=== PATIENT | female | born 1975 | race Two or more races ===

== ENCOUNTER 2018-10-04 21:13 | Emergency (ER) | payer BC ==
[~2018-10-04] VITALS: Ht 175.3 cm; Wt 61.2 kg
[2018-10-04 21:22] VITALS: BP_SYST 121
[2018-10-04 21:54] LABS: BASOPHILS # (AUTO) 0.1 K/uL (0.0-0.2); BASOPHILS % (AUTO) 0.7 % (0.0-2.0); EOSINOPHILS # (AUTO) 0.2 K/uL (0.0-0.4); EOSINOPHILS % (AUTO) 2.5 % (0.0-4.0); HEMATOCRIT 39.5 % (36-48); HEMOGLOBIN 13.1 g/dL (12.0-16.0); LYMPHOCYTES # (AUTO) 2.8 K/uL (1.0-5.5); LYMPHOCYTES % (AUTO) 35.2 % (20.5-51.5); MEAN CORPUSCULAR HEMOGLOBIN 31 pg (27-31); MEAN CORPUSCULAR HGB CONC 33 % (32-36); MEAN CORPUSCULAR VOLUME 92 fL (79.0-98.0); MONOCYTES # (AUTO) 0.8 K/uL (0.0-1.0); MONOCYTES % (AUTO) 10.5 % (1.7-9.3); NEUTROPHILS % (AUTO) 51.1 % (40.0-70.0); PLATELET COUNT (AUTO) 209 K/uL (130-430); RED BLOOD CELL COUNT(AUTO) 4.31 MIL/uL (4.2-6.2); RED CELL DISTRIBUTION WIDTH 14.4 % (9.0-15.0); WHITE BLOOD COUNT (AUTO) 7.9 K/uL (4.8-10.8)
[2018-10-04] MEDS ORDERED: MORPHINE 4 MG/ML INJ. SYRINGE IVP ONE (22:00)
[2018-10-04 22:06] LABS: ANION GAP 7 (5-15); CALCIUM 8.8 mg/dL (8.4-11.0); CHLORIDE 106 mmol/L (98-107); CREATININE 0.68 mg/dL (0.55-1.30); GLUCOSE 67 mg/dL (70-99); POTASSIUM 3.6 mmol/L (3.5-5.1); SODIUM SERUM 142 mmol/L (136-145); UREA NITROGEN, BLOOD 13 mg/dL (8-21)
[2018-10-04 22:09] LABS: GFR AFRICAN AMERICAN 123 mL/min (>90)
[2018-10-04] MEDS ORDERED: NACL 0.9% 1,000 ML IV ONE (22:15)
[2018-10-04 22:17] LABS: ALANINE AMINOTRANSFERASE 50 U/L (12-78); ALBUMIN 3.5 g/dL (3.4-4.8); ASPARTATE AMINOTRANSFERASE 31 U/L (10-37); TOTAL BILIRUBIN 0.4 mg/dL (0.0-1.0)
[2018-10-04] MEDS ORDERED: fentaNYL CITRATE/PF 100 MCG/2 ML AMP IVP ONE (23:45)
[2018-10-05] MEDS ORDERED: CYCLOBENZAPRINE HCL 10 MG TABLET (FLEXERIL) PO ONE
[2018-10-05] MEDS ORDERED: NACL 0.9% 1,000 ML IV ONE
[2018-10-05 00:55] VITALS: BP_SYST 107
== END 2018-10-05 00:55 | disposition home or self-care (01) ==
LOC: SED 21:13
DX: S39.012A Strain of muscle, fascia and tendon of lower back, initial encounter (principal); S00.83XA Contusion of other part of head, initial encounter; E86.0 Dehydration; R55 Syncope and collapse; I95.9 Hypotension, unspecified; W19.XXXA Unspecified fall, initial encounter; Y93.89 Activity, other specified; Y92.89 Other specified places as the place of occurrence of the external cause; Y99.8 Other external cause status
CPT/HCPCS: 36415; 70450; 72110; 72170; 80053; 81025; 84484; 85025; 93005; 96361; 96374; 96375; 99284; J2270; J3010; J7030; 99283

== ENCOUNTER 2018-10-19 19:21 | Inpatient (IN) | payer BC ==
[~2018-10-19] VITALS: Ht 175.3 cm; Wt 93.0 kg
[2018-10-19 19:32] VITALS: BP_SYST 120
--- NOTE | 2018-10-19 19:32 | NUR ---
Placed in room 4 . Placed on acid tender, blood pressure machine and pulse oximeter. To gown for exam. Side rails up.
--- NOTE | 2018-10-19 19:38 | NUR ---
Pt complains of feeling weak and "feels like the room is closing in on her." Per pt, she hasnt been feeling well for the past month. Pt was seen in the ED on 10/04/18 because she fainted and hit her head. No hemorrhage. Pt states she has been noticing that her heart rate would drop down to 38 and would jump back up to 160's without doing any activity. Pt has been paying close attention to her watch that shows heart rate and heart rhythm. Pt denies chest pain, shortness of breath. Pt did state she feels nauseous. No other injuries/complaints per patient or noted.
--- NOTE | 2018-10-19 19:48 | NUR ---
ER Dr. St at bedside examining patient.
[2018-10-19] MEDS ORDERED: NACL 0.9% 1,000 ML IV ONE (20:00)
--- NOTE | 2018-10-19 20:25 | NUR ---
# 20 gauge angiocath placed to LAC. Use of asceptic technique. Opsite placed over site. Blood return noted. Blood for lab drawn from site. Flushed with 10 cc of normal saline. No evidence of infiltration noted. Patient tolerated well.
[2018-10-19 20:41] LABS: BASOPHILS # (AUTO) 0.1 K/uL (0.0-0.2); BASOPHILS % (AUTO) 0.7 % (0.0-2.0); EOSINOPHILS # (AUTO) 0.2 K/uL (0.0-0.4); EOSINOPHILS % (AUTO) 1.7 % (0.0-4.0); HEMATOCRIT 38.7 % (36-48); HEMOGLOBIN 12.9 g/dL (12.0-16.0); LYMPHOCYTES # (AUTO) 2.3 K/uL (1.0-5.5); MEAN CORPUSCULAR HEMOGLOBIN 31 pg (27-31); MEAN CORPUSCULAR HGB CONC 33 % (32-36); MEAN CORPUSCULAR VOLUME 91 fL (79.0-98.0); MONOCYTES # (AUTO) 0.7 K/uL (0.0-1.0); MONOCYTES % (AUTO) 7.4 % (1.7-9.3); NEUTROPHILS # (AUTO) 6.4 K/uL (1.8-7.7); NEUTROPHILS % (AUTO) 66.2 % (40.0-70.0); PLATELET COUNT (AUTO) 215 K/uL (130-430); RED BLOOD CELL COUNT(AUTO) 4.23 MIL/uL (4.2-6.2); RED CELL DISTRIBUTION WIDTH 14.2 % (9.0-15.0); WHITE BLOOD COUNT (AUTO) 9.7 K/uL (4.8-10.8)
[2018-10-19 20:48] LABS: CALCIUM 8.9 mg/dL (8.4-11.0); CREATININE 0.59 mg/dL (0.55-1.30); POTASSIUM 3.4 mmol/L (3.5-5.1)
[2018-10-19 20:53] LABS: ALBUMIN 3.7 g/dL (3.4-4.8); TOTAL BILIRUBIN 0.3 mg/dL (0.0-1.0)
--- NOTE | 2018-10-19 21:22 | NUR ---
Pt resting comfortably in hospital bed. NO acute distress, will continue to monitor.
[2018-10-19 21:52] LABS: BILIRUBIN,URINE NEGATIVE (NEGATIVE); BLOOD, URINE NEGATIVE (NEGATIVE); CLARITY/URINE CLEAR (CLEAR); COLOR,URINE YELLOW (YELLOW); GLUCOSE,URINE NEGATIVE (NEGATIVE); KETONES,URINE NEGATIVE (NEGATIVE); LEUKOCYTE ESTERASE ,URINE 3+ (NEGATIVE); NITRITE, URINE NEGATIVE (NEGATIVE); PH,URINE 5.5 (5.0-8.0); PROTEIN URINE NEGATIVE (NEGATIVE); UROBILINOGEN,URINE 0.2 (0.2-1.0)
[2018-10-19 21:56] LABS: RBC,URINE 0-3 /HPF (0-3); WBC,URINE 50-80 /HPF (0-3)
[2018-10-19 21:57] LABS: BACTERIA,URINE FEW /HPF (None Seen)
[2018-10-19] MEDS ORDERED: MULT-1089 PO (21:58)
[2018-10-19] MEDS ORDERED: POTASSIUM CHLORIDE 20 MEQ TAB.PRT.SR PO PRN (22:15)
[2018-10-19] MEDS ORDERED: MUPIROCIN 2% TOPICAL OINTMENT 22 GM NS PRN (22:15)
[2018-10-19] MEDS ORDERED: DOCUSATE SODIUM 100 MG CAPSULE PO PRN (22:15)
[2018-10-19] MEDS ORDERED: MAGNESIUM SULFATE 50 ML IV PRN (22:15)
[2018-10-19] MEDS ORDERED: ONDANSETRON HCL 4 MG/2 ML VIAL IVP PRN (22:15)
[2018-10-19] MEDS ORDERED: ACETAMINOPHEN 325 MG TABLET PO PRN (22:15)
--- NOTE | 2018-10-19 22:21 | NUR ---
Patient will be admitted to care of Dr. Hennessy. Admitted to Telemetry unit. Will go to room 135. Belongings list completed. Summary report printed. Report will be given at bedside.
--- NOTE | 2018-10-19 22:21 | NUR ---
Transfer to Telemetry via ACLS protocol. Licensed nurse present. IV present no signs or symptoms of infiltration.
[2018-10-19] MEDS ORDERED: MECLIZINE HCL 25 MG TABLET (ANITVERT) PO PRN (22:30)
--- NOTE | 2018-10-19 22:38 | NUR ---
ADMIT NOTE Received pt from ER to the floor with a diagnosis of SYNCOPE. Admission process initiated. patient oriented to pain management, safety and call light-teach back done.
[2018-10-19 22:46] VITALS: BP_SYST 108
[2018-10-19 22:58] LABS: PROTHROMBIN TIME 10.4 SECS (9.5-12.5)
[2018-10-19] MEDS ORDERED: cefTRIAXone 1 GM IVPB PREMIX 50 ML IV ONE (23:03)
[2018-10-19] MEDS: cefTRIAXone 1 GM IVPB PREMIX 50 ML IV SCH (23:20)
--- NOTE | 2018-10-19 23:20 | NUR ---
IV ANTIBIOTICS/K-DUR IV antibiotics hung at this time. IV site patent, IVF infusing well, no signs of infiltration noted. K-Dur administered per PRN order. Will continue to monitor and reassess. Call light with patient.
[2018-10-19 23:24] LABS: BARBITURATE, URINE NEGATIVE (NEG <=200); BENZODIAZEPINE, URINE NEGATIVE (NEG <=150); CANNABINOID, URINE NEGATIVE (NEG <=50); COCAINE, URINE NEGATIVE (NEG <=150); METHAMPHETAMINES SCREEN,URINE NEGATIVE (NEG <=500); OPIATE, URINE NEGATIVE (NEG <=100); PHENCYCLIDINE SCREEN,URINE NEGATIVE (NEG <=25); UR TRICYCLIC ANTIDEPRESSANTS NEGATIVE (NEG <=300); URINE AMPHETAMINE NEGATIVE (NEG <=500); URINE METHADONE NEGATIVE (NEG <=200); URINE OXYCODONE SCREEN NEGATIVE (NEG <=100); URINE PROPOXYPHENE SCREEN NEGATIVE (NEG <=300)
[2018-10-20 00:28] VITALS: BP_SYST 100
--- NOTE | 2018-10-20 01:36 | NUR ---
ROUNDS Patient in bed sleeping comfortably. NO signs of discomfort noted. Chest rise and fall even bilaterally. Call light within reach. Will continue to monitor.
--- NOTE | 2018-10-20 03:00 | NUR ---
ROUNDS Patient in bed sleeping comfortably. No s/s of acute distress noted. Breathing is even and unlabored. Call light within reach. Will continue to monitor.
--- NOTE | 2018-10-20 05:00 | NUR ---
ROUNDS Patient sleeping in bed. No signs of discomfort noted. Chest rise and fall even bilaterally. Call light within reach. Will continue to monitor.
[2018-10-20 06:18] LABS: BASOPHILS # (AUTO) 0.1 K/uL (0.0-0.2); BASOPHILS % (AUTO) 0.8 % (0.0-2.0); EOSINOPHILS # (AUTO) 0.1 K/uL (0.0-0.4); EOSINOPHILS % (AUTO) 2.1 % (0.0-4.0); HEMATOCRIT 34.2 % (36-48); HEMOGLOBIN 11.4 g/dL (12.0-16.0); LYMPHOCYTES # (AUTO) 2.2 K/uL (1.0-5.5); LYMPHOCYTES % (AUTO) 33.7 % (20.5-51.5); MEAN CORPUSCULAR HEMOGLOBIN 30 pg (27-31); MEAN CORPUSCULAR HGB CONC 33 % (32-36); MEAN CORPUSCULAR VOLUME 92 fL (79.0-98.0); MONOCYTES # (AUTO) 0.5 K/uL (0.0-1.0); MONOCYTES % (AUTO) 6.9 % (1.7-9.3); NEUTROPHILS # (AUTO) 3.7 K/uL (1.8-7.7); NEUTROPHILS % (AUTO) 56.5 % (40.0-70.0); PLATELET COUNT (AUTO) 189 K/uL (130-430); RED BLOOD CELL COUNT(AUTO) 3.74 MIL/uL (4.2-6.2); RED CELL DISTRIBUTION WIDTH 13.8 % (9.0-15.0); WHITE BLOOD COUNT (AUTO) 6.6 K/uL (4.8-10.8)
[2018-10-20 06:27] LABS: CALCIUM 8.5 mg/dL (8.4-11.0); CREATININE 0.62 mg/dL (0.55-1.30); POTASSIUM 4.2 mmol/L (3.5-5.1)
--- NOTE | 2018-10-20 06:35 | NUR ---
CLOSING NOTES Patient in bed sleeping at this time. No s/s of acute distress noted. Breathing is even and unlabored. IV site shows no signs of infiltration or infection. No complaints of pain or SOB throughout shift. All needs met throughout shift. Fall and safety precautions maintained throughout shift. Will continue to monitor until patient care is endorsed to oncoming dayshift nurse.
[2018-10-20 06:37] LABS: PHOSPHORUS 3.6 mg/dL (2.7-4.5)
--- NOTE | 2018-10-20 06:48 | NUR ---
CONSULTATION PAGED/CALLED Reason for Consultation: SYNCOPE Person Who was Notified: SPOKE WITH WILLY FROM [facility] Consulting Physician: District Loss Prevention Manager Specialty: CARDIO Ordering Physician:
[2018-10-20 08:02] VITALS: BP_SYST 113
--- NOTE | 2018-10-20 08:10 | NUR ---
OPENING NOTE patient received resting in bed A&O x4, patient denies any dizziness or acute distress, breathing is even and unlabored on room air, educated patient on plan of care and call light system, will continue to monitor, safety precautions in place, call light within reach.
[2018-10-20] MEDS: HEPARIN SODIUM,PORCINE 5000 UNITS/ML VIAL SUBCUT SCH ×2 (09:00→20:57)
--- NOTE | 2018-10-20 10:26 | NUR ---
NOTES patient ambulating around the floor with steady gait, patient denies any acute distress or pain at this time, breathing is even and unlabored on room air, will continue to monitor, safety precautions in place.
[2018-10-20 11:33] VITALS: BP_SYST 108
--- NOTE | 2018-10-20 12:45 | NUR ---
NOTES patient is resting in bed watching tv, patient denies any acute distress or pain at this time, breathing is even and unlabored on room air, at bedside, will continue to monitor, safety precautions in place, call light within reach.
--- NOTE | 2018-10-20 14:35 | NUR ---
NOTES patient is ambulating around floor with , patient denies any acute distress or pain or dizziness, breathing is even and unlabored on room air, will continue to monitor, safety precautions in place, call light within reach.
[2018-10-20 15:37] VITALS: BP_SYST 100
--- NOTE | 2018-10-20 16:32 | NUR ---
NOTES patient ambulated to bathroom with steady gait, patient now is resting in bed watching tv, patient denies any acute distress or pain at this time, breathing is even and unlabored on room air, at bedside, will continue to monitor, safety precautions in place, call light within reach.
--- NOTE | 2018-10-20 18:49 | NUR ---
CLOSING NOTE patient is resting in bed A&O x4, patient denies any acute distress or pain at this time, patient denies any dizziness or sob, patient tolerated dinner well with no n/v, all needs were met throughout shift, will endorse report to oncoming nurse, safety precautions in place, call light within reach.
--- NOTE | 2018-10-20 19:45 | NUR ---
INITIAL NOTE AT INITIAL ASSESSMENT, PATIENT IS RESTING IN BED, STABLE, NO SIGNS OF RESPIRATORY DISTRESS. PATIENT VERBALIZES NO PAIN. IS AT BEDSIDE. PLAN OF CARE FOR THE EVENING IS COMMUNICATED WITH THE PATIENT AND HER . CALL LIGHT- TEACH BACK IS SUCCESSFUL. BED IS LOCKED, ALARMED, AND AT THE LOWEST LEVEL. FALL AND SAFETY PRECAUTIONS WILL BE IN PLACE THROUGHOUT THE SHIFT .
[2018-10-20 19:47] VITALS: BP_SYST 105
[2018-10-20] MEDS: cefTRIAXone 1 GM IVPB PREMIX 50 ML IV SCH (22:06)
[2018-10-21 00:19] VITALS: BP_SYST 94
[2018-10-21 06:25] LABS: BASOPHILS % (AUTO) 0.7 % (0.0-2.0); EOSINOPHILS # (AUTO) 0.1 K/uL (0.0-0.4); EOSINOPHILS % (AUTO) 2.5 % (0.0-4.0); HEMATOCRIT 36.5 % (36-48); HEMOGLOBIN 12.2 g/dL (12.0-16.0); LYMPHOCYTES # (AUTO) 1.9 K/uL (1.0-5.5); LYMPHOCYTES % (AUTO) 35.6 % (20.5-51.5); MEAN CORPUSCULAR HEMOGLOBIN 30 pg (27-31); MEAN CORPUSCULAR HGB CONC 34 % (32-36); MEAN CORPUSCULAR VOLUME 90 fL (79.0-98.0); MONOCYTES # (AUTO) 0.4 K/uL (0.0-1.0); MONOCYTES % (AUTO) 7.5 % (1.7-9.3); NEUTROPHILS # (AUTO) 2.8 K/uL (1.8-7.7); NEUTROPHILS % (AUTO) 53.7 % (40.0-70.0); PLATELET COUNT (AUTO) 205 K/uL (130-430); RED BLOOD CELL COUNT(AUTO) 4.04 MIL/uL (4.2-6.2); RED CELL DISTRIBUTION WIDTH 13.8 % (9.0-15.0); WHITE BLOOD COUNT (AUTO) 5.2 K/uL (4.8-10.8)
[2018-10-21 06:37] LABS: CREATININE 0.56 mg/dL (0.55-1.30); POTASSIUM 4.1 mmol/L (3.5-5.1)
--- NOTE | 2018-10-21 06:55 | NUR ---
CLOSING NOTE PATIENT SLEPT WELL THROUGHOUT THE SHIFT. PATIENT IS RESTING IN BED, STABLE, NO SIGNS OF RESPIRATORY DISTRESS. CALL LIGHT WITHIN REACH. BED IS LOCKED, ALARMED, AND AT THE LOWEST LEVEL. FALL AND SAFETY PRECAUTIONS HAVE BEEN IN PLACE THROUGHOUT THE SHIFT. WILL CONTINUE TO MONITOR UNTIL SHIFT REPORT IS GIVEN AT BEDSIDE TO AM NURSE.
[2018-10-21 07:45] VITALS: BP_SYST 105
--- NOTE | 2018-10-21 08:00 | NUR ---
OPENING NOTES, RECEIVED PT IN BED, PT IS AAOX4, DENIES PAIN, NO SOB, NO RESP DISTRESS . NO DIZZINESS. IV ACCESS INTACT AND PATENT. PT IS AFEBRILE. SAFETY PRECAUTION IN PLACE. CALL LIGHT IN REACH. PATIENT ENCOURAGED TO CALL FOR ANY ASSIST NEEDED. WILL CONT TO MONITOR.
[2018-10-21] MEDS: HEPARIN SODIUM,PORCINE 5000 UNITS/ML VIAL SUBCUT SCH ×2 (09:00→09:24)
--- NOTE | 2018-10-21 10:03 | NUR ---
pt ambulating in the hallway with spouse. pt did take shower this am after breakfast.
[2018-10-21 11:39] VITALS: BP_SYST 105
[2018-10-21] MEDS ORDERED: MIDO5TAB PO (11:42)
--- NOTE | 2018-10-21 12:30 | NUR ---
D/C Patient Patient given medication reconciliation form and D/C instructions. Exit Care provided. Patient verbalized understanding. MD discussed with patient the results and treatment provided. Ambulatory with steady gait for discharge to home. Patient in stable condition, ID band removed. IV catheter removed, intact and dressing applied, no active bleeding. Rx of MIDODRINE given. Patient educated on pain management. All belongings sent with patient.
[2018-10-23 03:13] LABS: FOLATE (FOLIC ACID) >20.0 ng/mL (>3.0)
== END 2018-10-21 12:30 | disposition home or self-care (01) | DRG 74 ==
LOC: SED 19:21 → STU 22:10 → SMU 10-21 12:22
PROVIDERS: ADMIT Family Medicine; ATTEND Family Medicine
DX: G90.8 Other disorders of autonomic nervous system (principal); N39.0 Urinary tract infection, site not specified; D64.9 Anemia, unspecified; E87.6 Hypokalemia; G90.9 Disorder of the autonomic nervous system, unspecified; E66.01 Morbid (severe) obesity due to excess calories; G89.29 Other chronic pain; I95.9 Hypotension, unspecified; Z82.49 Family history of ischemic heart disease and other diseases of the circulatory system; Z82.3 Family history of stroke; Z90.49 Acquired absence of other specified parts of digestive tract; Z98.84 Bariatric surgery status; Z68.30 Body mass index [BMI] 30.0-30.9, adult
CPT/HCPCS: 36415; 70450-TC; 71045; 80048; 80053; 80307; 81000-TC; 82550-TC; 82607; 82746; 83036; 83735-TC; 84100-TC; 84443-TC; 84484; 85025; 85610-TC; 87086; 93005; 93306; 93880; 96360; 99285; G0378; J0696; J1644; J7030

== ENCOUNTER 2022-11-24 11:55 | Inpatient (IN) | payer BC ==
[~2022-11-24] VITALS: Ht 175.3 cm; Wt 114.0 kg
[2022-11-24 11:55] VITALS: BP_SYST 144; PULSE 64; RESP 18; TEMP 97.2; O2SAT 99
[~2022-11-24 11:55] MED LIST: MIDO5TAB4 PO; MULT-1089 PO
[2022-11-24] MEDS ORDERED: NACL 0.9% 1,000 ML IV ONE (12:00)
[2022-11-24 12:25] LABS: BASOPHILS % (AUTO) 0.9 % (0.0-2.0); EOSINOPHILS # (AUTO) 0.1 K/uL (0.0-0.4); HEMATOCRIT 33.9 % (36-48); HEMOGLOBIN 10.7 g/dL (12.0-16.0); LYMPHOCYTES # (AUTO) 1.6 K/uL (1.0-5.5); LYMPHOCYTES % (AUTO) 31.1 % (20.5-51.5); MEAN CORPUSCULAR HEMOGLOBIN 25 pg (27-31); MEAN CORPUSCULAR HGB CONC 31 % (32-36); MEAN CORPUSCULAR VOLUME 79 fL (79.0-98.0); MONOCYTES # (AUTO) 0.4 K/uL (0.0-1.0); MONOCYTES % (AUTO) 6.8 % (1.7-9.3); NEUTROPHILS # (AUTO) 3.1 K/uL (1.8-7.7); NEUTROPHILS % (AUTO) 59.2 % (40.0-70.0); PLATELET COUNT (AUTO) 230 K/uL (130-430); RED BLOOD CELL COUNT(AUTO) 4.32 MIL/uL (4.2-6.2); RED CELL DISTRIBUTION WIDTH 17.1 % (9.0-15.0); WHITE BLOOD COUNT (AUTO) 5.2 K/uL (4.8-10.8)
[2022-11-24 12:43] LABS: ANION GAP 9 (5-15); CALCIUM 8.2 mg/dL (8.4-11.0); CHLORIDE 107 mmol/L (98-107); CREATININE 0.61 mg/dL (0.55-1.30); GFR AFRICAN AMERICAN 137 mL/min (>90); GLUCOSE 109 mg/dL (74-106); UREA NITROGEN, BLOOD 11 mg/dL (8-21)
[2022-11-24] MEDS ORDERED: MECLIZINE HCL 25 MG TABLET (ANITVERT) PO ONE (12:45)
[2022-11-24 12:48] LABS: ALANINE AMINOTRANSFERASE 31 U/L (12-78); ALBUMIN 3.5 g/dL (3.4-4.8); ASPARTATE AMINOTRANSFERASE 31 U/L (10-37); TOTAL BILIRUBIN 0.4 mg/dL (0.0-1.0)
[2022-11-24 13:37] LABS: BILIRUBIN,URINE NEGATIVE (NEGATIVE); BLOOD, URINE 3+ (NEGATIVE); CLARITY/URINE CLOUDY (CLEAR); GLUCOSE,URINE NEGATIVE (NEGATIVE); KETONES,URINE NEGATIVE (NEGATIVE); LEUKOCYTE ESTERASE ,URINE 1+ (NEGATIVE); NITRITE, URINE NEGATIVE (NEGATIVE); PH,URINE 6.5 (5.0-8.0); PROTEIN URINE 1+ (NEGATIVE); UROBILINOGEN,URINE 0.2 (0.2-1.0)
[2022-11-24 13:54] LABS: BARBITURATE, URINE NEGATIVE (NEG <=200); BENZODIAZEPINE, URINE NEGATIVE (NEG <=150); CANNABINOID, URINE NEGATIVE (NEG <=50); COCAINE, URINE NEGATIVE (NEG <=150); METHAMPHETAMINES SCREEN,URINE NEGATIVE (NEG <=500); OPIATE, URINE NEGATIVE (NEG <=100); PHENCYCLIDINE SCREEN,URINE NEGATIVE (NEG <=25); UR TRICYCLIC ANTIDEPRESSANTS NEGATIVE (NEG <=300); URINE AMPHETAMINE NEGATIVE (NEG <=500); URINE METHADONE NEGATIVE (NEG <=200); URINE OXYCODONE SCREEN NEGATIVE (NEG <=100); URINE PROPOXYPHENE SCREEN NEGATIVE (NEG <=300)
[2022-11-24 13:55] LABS: BACTERIA,URINE RARE /HPF (None Seen); COLOR,URINE BROWN (YELLOW); RBC,URINE >100 /HPF (0-3)
[2022-11-24] MEDS ORDERED: KETOROLAC TROMETHAMINE 30 MG VIAL IVP ONE (15:00)
[2022-11-24] MEDS ORDERED: cefTRIAXone 1 GM in D5W 50 ML IV ONE (15:45)
[2022-11-24] MEDS ORDERED: cefTRIAXone 1 GM VIAL ONE (16:23)
[2022-11-24] MEDS ORDERED: ONDANSETRON HCL 4 MG/2 ML VIAL IVP PRN (20:45)
[2022-11-24] MEDS ORDERED: LORazepam 2 MG/ML VIAL IVP PRN (20:45)
[2022-11-24] MEDS ORDERED: HYDROcodone/ACETAMIN 5-325 MG TAB (NORCO/ VICODIN) PO PRN (20:45)
[2022-11-24] MEDS ORDERED: NALOXONE HCL 0.4 MG/ML AMP (NARCAN) IVP PRN ×2 (20:45)
[2022-11-24] MEDS ORDERED: HYDROcodone/ACETAMIN 10-325 MG TAB PO PRN (20:45)
[2022-11-24] MEDS ORDERED: ACETAMINOPHEN 325 MG TABLET PO PRN (20:45)
[2022-11-24] MEDS: NORMAL SALINE 5 ML DISP.SYRIN IVF SCH (23:21)
[2022-11-24 23:23] VITALS: BP_SYST 120; PULSE 55; RESP 18; TEMP 97.6
[2022-11-24 23:49] VITALS: O2SAT 98
[2022-11-25 00:44] VITALS: BP_SYST 120; PULSE 55; RESP 18; TEMP 97.6; O2SAT 98
[2022-11-25 06:25] LABS: BASOPHILS # (AUTO) 0.1 K/uL (0.0-0.2); EOSINOPHILS # (AUTO) 0.1 K/uL (0.0-0.4); HEMATOCRIT 30.5 % (36-48); HEMOGLOBIN 9.7 g/dL (12.0-16.0); LYMPHOCYTES # (AUTO) 1.8 K/uL (1.0-5.5); LYMPHOCYTES % (AUTO) 35.7 % (20.5-51.5); MEAN CORPUSCULAR HEMOGLOBIN 25 pg (27-31); MEAN CORPUSCULAR HGB CONC 32 % (32-36); MEAN CORPUSCULAR VOLUME 78 fL (79.0-98.0); MONOCYTES # (AUTO) 0.3 K/uL (0.0-1.0); MONOCYTES % (AUTO) 6.8 % (1.7-9.3); NEUTROPHILS # (AUTO) 2.6 K/uL (1.8-7.7); NEUTROPHILS % (AUTO) 53.5 % (40.0-70.0); PLATELET COUNT (AUTO) 210 K/uL (130-430); RED CELL DISTRIBUTION WIDTH 16.9 % (9.0-15.0); WHITE BLOOD COUNT (AUTO) 4.9 K/uL (4.8-10.8)
[2022-11-25 06:37] LABS: CALCIUM 7.9 mg/dL (8.4-11.0); CREATININE 0.51 mg/dL (0.55-1.30); PHOSPHORUS 3.7 mg/dL (2.7-4.5)
[2022-11-25] MEDS: NORMAL SALINE 5 ML DISP.SYRIN IVF SCH ×3 (06:39→23:08)
[2022-11-25 08:00] VITALS: BP_SYST 133; PULSE 55; RESP 15; TEMP 97.2; O2SAT 99
[2022-11-25 08:15] VITALS: O2SAT 99
[2022-11-25 11:52] VITALS: BP_SYST 128; PULSE 66; RESP 18; TEMP 98; O2SAT 99
[2022-11-25] MEDS: cefTRIAXone 1 GM IVPB PREMIX 50 ML IV SCH (16:31)
[2022-11-25 18:03] VITALS: BP_SYST 126; PULSE 56; RESP 18; TEMP 98.2; O2SAT 99
[2022-11-25 20:00] VITALS: BP_SYST 106; PULSE 63; RESP 18; TEMP 97.6; O2SAT 97
[2022-11-25] MEDS ORDERED: metroNIDAZOLE 500 mg/NS 100 ML IV SCH (22:00)
[2022-11-26 00:55] VITALS: BP_SYST 130; PULSE 56; RESP 18; TEMP 97.7; O2SAT 99
[2022-11-26] MEDS: NORMAL SALINE 5 ML DISP.SYRIN IVF SCH ×2 (06:09→17:52)
[2022-11-26 07:49] LABS: CALCIUM 8.1 mg/dL (8.4-11.0); CREATININE 0.58 mg/dL (0.55-1.30)
[2022-11-26 07:57] LABS: BASOPHILS % (AUTO) 0.9 % (0.0-2.0); EOSINOPHILS # (AUTO) 0.2 K/uL (0.0-0.4); EOSINOPHILS % (AUTO) 3.2 % (0.0-4.0); HEMATOCRIT 31.9 % (36-48); LYMPHOCYTES # (AUTO) 1.8 K/uL (1.0-5.5); LYMPHOCYTES % (AUTO) 34.2 % (20.5-51.5); MEAN CORPUSCULAR HEMOGLOBIN 25 pg (27-31); MEAN CORPUSCULAR HGB CONC 31 % (32-36); MEAN CORPUSCULAR VOLUME 78 fL (79.0-98.0); MONOCYTES # (AUTO) 0.4 K/uL (0.0-1.0); MONOCYTES % (AUTO) 8.3 % (1.7-9.3); NEUTROPHILS # (AUTO) 2.7 K/uL (1.8-7.7); NEUTROPHILS % (AUTO) 53.4 % (40.0-70.0); PLATELET COUNT (AUTO) 207 K/uL (130-430); RED BLOOD CELL COUNT(AUTO) 4.07 MIL/uL (4.2-6.2); RED CELL DISTRIBUTION WIDTH 17.5 % (9.0-15.0); WHITE BLOOD COUNT (AUTO) 5.1 K/uL (4.8-10.8)
[2022-11-26 08:05] VITALS: O2SAT 99
[2022-11-26 08:09] LABS: ERYTHROCYTE SEDIMENTATION RATE 18 MM/HR (0-20)
[2022-11-26 08:25] VITALS: BP_SYST 124; PULSE 70; RESP 16; TEMP 97.7; O2SAT 99
[2022-11-26 11:27] VITALS: BP_SYST 113; PULSE 74; RESP 14; TEMP 97.7; O2SAT 99
[2022-11-26 16:30] VITALS: BP_SYST 115; PULSE 72; RESP 16; TEMP 97.2; O2SAT 99
[2022-11-26] MEDS: cefTRIAXone 1 GM IVPB PREMIX 50 ML IV SCH (17:51)
[2022-11-26 18:54] VITALS: BP_SYST 115; PULSE 72; RESP 16; TEMP 97.2; O2SAT 99
== END 2022-11-26 22:36 | disposition home or self-care (01) | DRG 101 ==
LOC: SED 11:55 → STU 16:02
PROVIDERS: ADMIT Preventive Medicine Preventive Medicine/Occupational Environmental Medicine; ATTEND Preventive Medicine Preventive Medicine/Occupational Environmental Medicine
DX: G40.909 Epilepsy, unspecified, not intractable, without status epilepticus (principal); N39.0 Urinary tract infection, site not specified; D64.9 Anemia, unspecified; G43.909 Migraine, unspecified, not intractable, without status migrainosus; M51.36 Other intervertebral disc degeneration, lumbar region; R73.9 Hyperglycemia, unspecified; E83.51 Hypocalcemia; Z82.3 Family history of stroke; Z98.84 Bariatric surgery status; Z88.7 Allergy status to serum and vaccine; Z91.040 Latex allergy status; Z79.899 Other long term (current) drug therapy
CPT/HCPCS: 36415; 70450-TC; 71045; 76376; 80048; 80053; 80307; 81000; 83605; 83735; 84100; 84484; 84703; 85025; 85651-TC; 87040; 87086; 93005; 93306; 93880; 95816; 97110-GP; 97116-GP; 97530-GP; 99285; G0378; J0696; J1885; J7050; J7060; J8597